=== PATIENT | male | born 1975 | race Caucasian/White ===

== ENCOUNTER 2016-05-15 18:30 | Emergency (ER) | payer MEDICAID ==
[~2016-05-15] VITALS: Ht 190.5 cm; Wt 111.6 kg
[~2016-05-15 18:30] MED LIST: ANTIBIOTIC PO; HYDR-4100 PO
[2016-05-15 18:35] VITALS: BP 125/75; PULSE 93; RESP 16; TEMP 98.1; O2SAT 95
--- NOTE | 2016-05-15 18:35 | NUR ---
Patient triaged and placed in waiting room. VSS and patient appears in no acute distress at this time. Accompanied by self, awaiting available bed, and MD notified of need for MSE.
--- NOTE | 2016-05-15 19:20 | NUR ---
Placed in room 03 . Placed on groundwater monitoring technician, blood pressure machine and pulse oximeter. To gown for exam. Side rails up. Report given to JOHN Heaton.
--- NOTE | 2016-05-15 19:30 | NUR ---
Pt states he has chronic back pain and for a day he has had a 10/10 onset in the L leg that travels up to the lower back. Will continue to monitor. No other injuries or complaints mentioned/noted. No distress noted.
--- NOTE | 2016-05-15 20:00 | NUR ---
ALFONZO Avelar examining pt at bedside.
[2016-05-15] MEDS ORDERED: MORPHINE SULFATE 10 MG/ML VIAL IM ONE (20:15)
[2016-05-15] MEDS ORDERED: DIPHENHYDRAMINE INJ 50 MG/ML VIAL IM ONE (20:15)
[2016-05-15 20:37] VITALS: BP 125/75; PULSE 74; RESP 16; TEMP 98.1; O2SAT 95
--- NOTE | 2016-05-15 20:37 | NUR ---
Patient given written and verbal discharge instructions and verbalizes understanding. ER LACQUER MIXER discussed with patient the results and treatment provided. Patient in stable condition. ID arm band removed. Rx of Medrol given. Patient educated on pain management and to follow up with PMD. Pain Scale 2/10. Opportunity for questions provided and answered.
== END 2016-05-15 20:37 | disposition home or self-care (01) ==
LOC: SED 18:30
DX: M54.16 Radiculopathy, lumbar region (principal)
CPT/HCPCS: 96372; 99284; J1200; J2270; J7030

== ENCOUNTER 2018-03-22 21:32 | Emergency (ER) | payer MEDICAID ==
[~2018-03-22] VITALS: Ht 188 cm; Wt 117.9 kg
[2018-03-22 21:37] VITALS: BP_SYST 140
[2018-03-22 23:05] VITALS: BP_SYST 140
== END 2018-03-22 23:05 | disposition home or self-care (01) ==
LOC: SED 21:32
DX: J32.9 Chronic sinusitis, unspecified (principal); R05 Cough; R03.0 Elevated blood-pressure reading, without diagnosis of hypertension
CPT/HCPCS: 99283

== ENCOUNTER 2018-10-27 12:26 | Emergency (ER) | payer MEDICAID ==
[~2018-10-27] VITALS: Ht 188 cm; Wt 122.5 kg
[2018-10-27 12:46] VITALS: BP_SYST 143
[2018-10-27] MEDS ORDERED: SODIUM BICARBONATE 8.4% VIAL 50 MEQ/50 ML VIAL INJ ONE (13:45)
[2018-10-27] MEDS ORDERED: LIDOCAINE 2%, 20 ML MDV INJ ONE (13:45)
[2018-10-27 14:27] VITALS: BP_SYST 139
== END 2018-10-27 14:27 | disposition home or self-care (01) ==
LOC: SED 12:26
DX: L98.0 Pyogenic granuloma (principal); R03.0 Elevated blood-pressure reading, without diagnosis of hypertension; K21.9 Gastro-esophageal reflux disease without esophagitis
CPT/HCPCS: 11420; 88304; 99284; J2001

== ENCOUNTER 2018-11-07 21:52 | Emergency (ER) | payer MEDICAID ==
[~2018-11-07] VITALS: Ht 190.5 cm; Wt 127.0 kg
[2018-11-07 22:00] VITALS: BP_SYST 149
[2018-11-08] MEDS ORDERED: LIDOCAINE 1% 10 MG/ML, 20 ML MDV INJ ONE (02:15)
[2018-11-08] MEDS ORDERED: BACITRACIN 1 GM OINT TP ONE ×2 (03:00→03:15)
[2018-11-08 03:14] VITALS: BP_SYST 136
[2018-11-11] MEDS ORDERED: OMEP10SU2 PO (21:10)
[2018-11-11] MEDS ORDERED: RANI300T7 PO (21:10)
[2018-11-11] MEDS ORDERED: IBUP-1970 PO (21:10)
== END 2018-11-08 03:14 | disposition home or self-care (01) ==
LOC: SED 21:52
DX: L92.8 Other granulomatous disorders of the skin and subcutaneous tissue (principal); K21.9 Gastro-esophageal reflux disease without esophagitis
CPT/HCPCS: 99283; J2001

== ENCOUNTER 2019-12-11 06:28 | Emergency (ER) | payer MEDICAID ==
[~2019-12-11] VITALS: Ht 190.5 cm; Wt 121.6 kg
[~2019-12-11 06:28] MED LIST changes: -ANTIBIOTIC PO; +CLIN300C11 PO; +DOXY100T2 PO; -HYDR-4100 PO; +L.RH1CAP PO; +OMEP10SU2 PO; +RANI300T7 PO; +TRAM100T34 PO
[2019-12-11 06:38] VITALS: BP_SYST 140
[2019-12-11 07:59] VITALS: BP_SYST 140
== END 2019-12-11 08:00 | disposition home or self-care (01) ==
LOC: SED 06:28
DX: R50.9 Fever, unspecified (principal); K21.9 Gastro-esophageal reflux disease without esophagitis; Z79.899 Other long term (current) drug therapy; Z20.828 Contact with and (suspected) exposure to other viral communicable diseases
CPT/HCPCS: 36415; 99283

== ENCOUNTER 2020-09-29 18:38 | Emergency (ER) | payer MEDICAID, SELFPAY ==
[~2020-09-29] VITALS: Ht 188 cm; Wt 108.9 kg
[~2020-09-29 18:38] MED LIST changes: -CLIN300C11 PO; +CLIN300C12 PO
[2020-09-29 18:47] VITALS: BP_SYST 142
[2020-09-29] MEDS ORDERED: PHEN16.225 PO (19:20)
[2020-09-29] MEDS ORDERED: LOM2.5 PO (19:20)
[2020-09-29 19:33] VITALS: BP_SYST 152
== END 2020-09-29 19:33 | disposition home or self-care (01) ==
LOC: SED 18:38
DX: R19.7 Diarrhea, unspecified (principal); R10.9 Unspecified abdominal pain; K21.9 Gastro-esophageal reflux disease without esophagitis; Z79.899 Other long term (current) drug therapy
CPT/HCPCS: 99283

== ENCOUNTER 2020-10-05 09:20 | Emergency (ER) | payer MEDICAID ==
[~2020-10-05] VITALS: Ht 188 cm; Wt 108.9 kg
[2020-10-05 09:27] VITALS: BP_SYST 113
[2020-10-05] MEDS ORDERED: DIPHENOXYLATE HCL/ATROP SULF 2.5 MG TAB PO ONE (10:15)
[2020-10-05] MEDS ORDERED: ONDA-8 TL (10:15)
[2020-10-05] MEDS ORDERED: LOM2.5 PO (10:15)
[2020-10-05] MEDS ORDERED: ONDANSETRON HCL 4 MG/2 ML VIAL IVP ONE (10:15)
[2020-10-05] MEDS ORDERED: NACL 0.9% 1,000 ML IV ONE (10:15)
[2020-10-05 10:29] LABS: BASOPHILS % (AUTO) 0.4 % (0.0-2.0); EOSINOPHILS # (AUTO) 0.5 K/uL (0.0-0.4); EOSINOPHILS % (AUTO) 3.9 % (0.0-4.0); HEMATOCRIT 52.4 % (36-54); HEMOGLOBIN 17.9 g/dL (14.0-18.0); LYMPHOCYTES # (AUTO) 1.1 K/uL (1.0-5.5); LYMPHOCYTES % (AUTO) 8.4 % (20.5-51.5); MEAN CORPUSCULAR HEMOGLOBIN 32 pg (27-31); MEAN CORPUSCULAR HGB CONC 34 % (32-36); MEAN CORPUSCULAR VOLUME 93 fL (79.0-98.0); MONOCYTES # (AUTO) 0.7 K/uL (0.0-1.0); MONOCYTES % (AUTO) 5.7 % (1.7-9.3); NEUTROPHILS # (AUTO) 10.4 K/uL (1.8-7.7); NEUTROPHILS % (AUTO) 81.6 % (40.0-70.0); PLATELET COUNT (AUTO) 296 K/uL (130-430); RED BLOOD CELL COUNT(AUTO) 5.63 MIL/uL (4.2-6.2); WHITE BLOOD COUNT (AUTO) 12.8 K/uL (4.8-10.8)
[2020-10-05 10:38] LABS: CALCIUM 8.3 mg/dL (8.4-11.0); CREATININE 1.21 mg/dL (0.55-1.30); POTASSIUM 3.9 mmol/L (3.5-5.1)
[2020-10-05 10:43] LABS: ALBUMIN 3.1 g/dL (3.4-4.8); TOTAL BILIRUBIN 0.4 mg/dL (0.0-1.0)
[2020-10-05 12:08] LABS: BILIRUBIN,URINE NEGATIVE (NEGATIVE); BLOOD, URINE 2+ (NEGATIVE); CLARITY/URINE CLEAR (CLEAR); COLOR,URINE YELLOW (YELLOW); GLUCOSE,URINE NEGATIVE (NEGATIVE); KETONES,URINE NEGATIVE (NEGATIVE); LEUKOCYTE ESTERASE ,URINE TRACE (NEGATIVE); NITRITE, URINE NEGATIVE (NEGATIVE); PROTEIN URINE NEGATIVE (NEGATIVE); UROBILINOGEN,URINE 0.2 (0.2-1.0)
[2020-10-05 12:19] LABS: BACTERIA,URINE FEW /HPF (None Seen); MUCUS,URINE 1+ /LPF (None Seen); RBC,URINE 0-3 /HPF (0-3); WBC,URINE 0-3 /HPF (0-3)
[2020-10-05 12:37] VITALS: BP_SYST 113
[2020-10-09] MEDS ORDERED: LOM2.5 PO ×2 (13:30→13:37)
[2020-10-09] MEDS ORDERED: ONDA-8 TL ×2 (13:30→13:37)
== END 2020-10-05 12:30 | disposition home or self-care (01) ==
LOC: SED 09:20
DX: K52.9 Noninfective gastroenteritis and colitis, unspecified (principal); E86.0 Dehydration; K21.9 Gastro-esophageal reflux disease without esophagitis; Z79.899 Other long term (current) drug therapy
CPT/HCPCS: 36415; 80053; 81000; 83690; 85025; 87086; 96361; 96374; 99283; J2405; J7030

== ENCOUNTER 2020-10-07 21:57 | Emergency (ER) | payer MEDICAID ==
[~2020-10-07] VITALS: Ht 188 cm; Wt 104.3 kg
[~2020-10-07 21:57] MED LIST changes: +LOM2.5 PO; +ONDA-8 TL
[2020-10-07 22:07] VITALS: BP_SYST 140
[2020-10-07] MEDS ORDERED: ONDA-8 TL (22:39)
[2020-10-07] MEDS ORDERED: LOM2.5 PO ×3 (22:39→22:46)
[2020-10-07 22:52] VITALS: BP_SYST 140
[2020-10-09] MEDS ORDERED: LOM2.5 PO ×2 (13:30→13:37)
[2020-10-09] MEDS ORDERED: ONDA-8 TL ×2 (13:30→13:37)
== END 2020-10-07 22:51 | disposition home or self-care (01) ==
LOC: SED 21:57
DX: R11.2 Nausea with vomiting, unspecified (principal); R19.7 Diarrhea, unspecified; K21.9 Gastro-esophageal reflux disease without esophagitis; Z79.899 Other long term (current) drug therapy
CPT/HCPCS: 99283

== ENCOUNTER 2020-10-11 22:05 | Emergency (ER) | payer MEDICAID ==
[~2020-10-11] VITALS: Ht 188 cm; Wt 106.6 kg
[2020-10-11 22:11] VITALS: BP_SYST 146
--- NOTE | 2020-10-11 22:11 | NUR ---
Patient to ER bed 06 to gown for evaluation. Side rails up.
--- NOTE | 2020-10-11 22:12 | NUR ---
Came in ER ambulatory from home this 45 year old male, AAOX4, breathing spontaneously at room air, not in distress noted. With chief complaints of left flank pain radiating to back today, 4th visit in ER, History of Cellulitis, Diabetes, Chronic back pain. No known allergy.
--- NOTE | 2020-10-11 22:47 | NUR ---
ER at bedside examining patient.
[2020-10-11] MEDS ORDERED: MORPHINE 4 MG INJ. 4 MG/ML VIAL IM ONE (23:00)
[2020-10-11 23:15] LABS: BILIRUBIN,URINE NEGATIVE (NEGATIVE); BLOOD, URINE 2+ (NEGATIVE); CLARITY/URINE CLEAR (CLEAR); COLOR,URINE YELLOW (YELLOW); GLUCOSE,URINE NEGATIVE (NEGATIVE); KETONES,URINE NEGATIVE (NEGATIVE); LEUKOCYTE ESTERASE ,URINE NEGATIVE (NEGATIVE); NITRITE, URINE NEGATIVE (NEGATIVE); PROTEIN URINE TRACE (NEGATIVE)
[2020-10-11] MEDS ORDERED: MORPHINE 4 MG INJ. 4 MG/ML VIAL IVP ONE (23:15)
--- NOTE | 2020-10-11 23:15 | NUR ---
# 20 gauge angiocath placed to left wrist. Use of asceptic technique. Opsite placed over site. Blood return noted. Blood for lab drawn from site. Flushed with 10 cc of normal saline. No evidence of infiltration noted. Patient tolerated well.
[2020-10-11 23:20] LABS: BACTERIA,URINE RARE /HPF (None Seen); WBC,URINE 0-3 /HPF (0-3)
--- NOTE | 2020-10-11 23:23 | NUR ---
Medication given ordered and verbalized understanding
[2020-10-11 23:45] LABS: HEMOGLOBIN 17.6 g/dL (14.0-18.0); MEAN CORPUSCULAR VOLUME 94 fL (79.0-98.0)
[2020-10-11 23:48] LABS: CALCIUM 9.2 mg/dL (8.4-11.0); CREATININE 1.53 mg/dL (0.55-1.30); POTASSIUM 4.5 mmol/L (3.5-5.1)
[2020-10-11 23:50] LABS: BASOPHILS # (AUTO) 0.1 K/uL (0.0-0.2); BASOPHILS % (AUTO) 0.8 % (0.0-2.0); EOSINOPHILS # (AUTO) 0.7 K/uL (0.0-0.4); EOSINOPHILS % (AUTO) 7.7 % (0.0-4.0); HEMATOCRIT 52.6 % (36-54); LYMPHOCYTES # (AUTO) 1.4 K/uL (1.0-5.5); LYMPHOCYTES % (AUTO) 14.1 % (20.5-51.5); MEAN CORPUSCULAR HEMOGLOBIN 31 pg (27-31); MEAN CORPUSCULAR HGB CONC 33 % (32-36); MONOCYTES # (AUTO) 0.7 K/uL (0.0-1.0); MONOCYTES % (AUTO) 7.7 % (1.7-9.3); NEUTROPHILS # (AUTO) 6.7 K/uL (1.8-7.7); NEUTROPHILS % (AUTO) 69.7 % (40.0-70.0); PLATELET COUNT (AUTO) 337 K/uL (130-430); RED BLOOD CELL COUNT(AUTO) 5.62 MIL/uL (4.2-6.2); WHITE BLOOD COUNT (AUTO) 9.6 K/uL (4.8-10.8)
[2020-10-11 23:55] LABS: ALBUMIN 3.1 g/dL (3.4-4.8); TOTAL BILIRUBIN 0.4 mg/dL (0.0-1.0)
--- NOTE | 2020-10-12 00:30 | NUR ---
To CT Scan department per wheelchair in stable condition accompanied by tech
--- NOTE | 2020-10-12 00:51 | NUR ---
Back to bed from CT department, kept comfortable
--- NOTE | 2020-10-12 01:57 | NUR ---
Normal saline unable to scan, entered it manually
[2020-10-12] MEDS ORDERED: NACL 0.9% 1,000 ML IV ONE (02:00)
--- NOTE | 2020-10-12 02:28 | NUR ---
To toilet ambulatory, voided freely, apparently he unconsciously removed his IV cannula, dressing applied and no active bleeding
[2020-10-12 03:04] LABS: CKMB RELATIVE INDEX 0.2 (0.0-2.9); CREATINE KINASE MB 2.4 ng/mL (0-3.6)
[2020-10-12 03:30] LABS: CALCIUM 8.6 mg/dL (8.4-11.0); CREATININE 1.28 mg/dL (0.55-1.30)
[2020-10-12 04:03] VITALS: BP_SYST 128
--- NOTE | 2020-10-12 04:03 | NUR ---
Patient given written and verbal discharge instructions and verbalizes understanding. ER MD discussed with patient the results and treatment provided. Patient in stable condition. ID arm band removed. IV catheter removed intact and dressing applied, no active bleeding. No Rx of given. Patient educated on pain management and to follow up with PMD. Pain Scale 0/10. Opportunity for questions provided and answered. Medication side effect fact sheet provided.
== END 2020-10-12 04:03 | disposition home or self-care (01) ==
LOC: SED 22:05
DX: R10.9 Unspecified abdominal pain (principal); K21.9 Gastro-esophageal reflux disease without esophagitis; Z79.899 Other long term (current) drug therapy
CPT/HCPCS: 36415; 74176; 76376; 80048; 80053; 81000; 82550; 82553; 85025; 96361; 96374; 99284; J2270; J7030

== ENCOUNTER 2020-10-18 15:45 | Emergency (ER) | payer MEDICAID ==
[~2020-10-18] VITALS: Ht 188 cm; Wt 104.3 kg
[2020-10-18 16:10] VITALS: BP_SYST 143
--- NOTE | 2020-10-18 16:10 | NUR ---
PT TO BED 3 FOR EVALUATION.
--- NOTE | 2020-10-18 16:15 | NUR ---
Pt came to ER for blood in stool and abdominal pain 01/08. Pt resting in [facility] at this time, awaiting SANDIE OMALLEY.
--- NOTE | 2020-10-18 16:20 | NUR ---
DR. MARRUFO AT BEDSIDE TO ASSESS.
--- NOTE | 2020-10-18 17:07 | NUR ---
Pt resting in [facility] at this time
[2020-10-18 17:16] LABS: BASOPHILS # (AUTO) 0.1 K/uL (0.0-0.2); EOSINOPHILS # (AUTO) 0.8 K/uL (0.0-0.4); EOSINOPHILS % (AUTO) 9.5 % (0.0-4.0); HEMATOCRIT 49.6 % (36-54); HEMOGLOBIN 16.6 g/dL (14.0-18.0); LYMPHOCYTES % (AUTO) 12.3 % (20.5-51.5); MEAN CORPUSCULAR HEMOGLOBIN 31 pg (27-31); MEAN CORPUSCULAR HGB CONC 34 % (32-36); MEAN CORPUSCULAR VOLUME 93 fL (79.0-98.0); MONOCYTES # (AUTO) 0.5 K/uL (0.0-1.0); MONOCYTES % (AUTO) 6.2 % (1.7-9.3); NEUTROPHILS # (AUTO) 5.6 K/uL (1.8-7.7); PLATELET COUNT (AUTO) 385 K/uL (130-430); RED BLOOD CELL COUNT(AUTO) 5.33 MIL/uL (4.2-6.2); RED CELL DISTRIBUTION WIDTH 16.3 % (9.0-15.0); WHITE BLOOD COUNT (AUTO) 7.9 K/uL (4.8-10.8)
[2020-10-18 17:20] LABS: CALCIUM 9.7 mg/dL (8.4-11.0); CREATININE 1.32 mg/dL (0.55-1.30); POTASSIUM 4.8 mmol/L (3.5-5.1)
[2020-10-18 17:37] LABS: TOTAL BILIRUBIN 1.1 mg/dL (0.0-1.0)
[2020-10-18 17:46] LABS: BILIRUBIN,URINE NEGATIVE (NEGATIVE); BLOOD, URINE 1+ (NEGATIVE); GLUCOSE,URINE NEGATIVE (NEGATIVE); KETONES,URINE NEGATIVE (NEGATIVE); LEUKOCYTE ESTERASE ,URINE NEGATIVE (NEGATIVE); NITRITE, URINE NEGATIVE (NEGATIVE); PH,URINE 7.5 (5.0-8.0); PROTEIN URINE TRACE (NEGATIVE)
[2020-10-18 18:00] LABS: CLARITY/URINE SLIGHTLY HAZY (CLEAR); COLOR,URINE AMBER (YELLOW)
[2020-10-18 18:05] LABS: PROTHROMBIN TIME 10.5 SECS (9.5-12.5)
[2020-10-18 18:14] LABS: C-REACTIVE PROTEIN QUANT 0.8 mg/dL (0-0.5)
[2020-10-18] MEDS ORDERED: NACL 0.9% 1,000 ML IV ONE (18:15)
[2020-10-18 19:11] LABS: BACTERIA,URINE FEW /HPF (None Seen); MUCUS,URINE None Seen /LPF (None Seen); WBC,URINE 0-3 /HPF (0-3)
[2020-10-18 19:38] VITALS: BP_SYST 143
== END 2020-10-18 19:38 | disposition home or self-care (01) ==
LOC: SED 15:45
DX: R10.33 Periumbilical pain (principal); E87.2 Acidosis; K21.9 Gastro-esophageal reflux disease without esophagitis; Z88.5 Allergy status to narcotic agent; Z79.899 Other long term (current) drug therapy
CPT/HCPCS: 36415; 74018; 80053; 81000; 82150; 83605; 83615; 83690; 84484; 85025; 85610; 85730; 86140; 96360; 99284; J7030

== ENCOUNTER 2021-01-03 00:27 | Emergency (ER) | payer OTHER, MEDICAID ==
[~2021-01-03] VITALS: Ht 188 cm; Wt 113.4 kg
[2021-01-03 00:44] VITALS: BP_SYST 156
--- NOTE | 2021-01-03 00:44 | NUR ---
Patient triaged and placed in waiting room. VSS and patient appears in no acute distress at this time. Accompanied by SELF, awaiting available bed, and MD notified of need for MSE.
[2021-01-03 00:45] VITALS: BP_SYST 156
--- NOTE | 2021-01-03 01:28 | NUR ---
NO RESPONSE WHEN CALLED FROM [facility]
== END 2021-01-03 01:29 | disposition left against medical advice (07) ==
LOC: SED 00:27
DX: R12 Heartburn (principal); Z53.21 Procedure and treatment not carried out due to patient leaving prior to being seen by health care provider

== ENCOUNTER 2021-09-02 18:51 | Emergency (ER) | payer MEDICAID ==
[~2021-09-02] VITALS: Ht 188 cm; Wt 111.1 kg
[~2021-09-02 18:51] MED LIST changes: +CLIN-142 PO; -CLIN300C12 PO; +HYDR-3917 PO
[2021-09-02 19:01] VITALS: BP_SYST 132
--- NOTE | 2021-09-02 19:01 | NUR ---
Placed in room 8 . Placed on director of cardiac rehabilitation, blood pressure machine and pulse oximeter. To gown for exam. Side rails up.
--- NOTE | 2021-09-02 19:15 | NUR ---
REPORT GIVEN TO JOHN LAZO FOR CONTINUING CARE
[2021-09-02] MEDS ORDERED: KETOROLAC TROMETHAMINE 30 MG VIAL IVP ONE (19:30)
--- NOTE | 2021-09-02 19:45 | NUR ---
Attempted IV with no luck aware. Lab had no luck with initial blood draw.
[2021-09-02 20:06] LABS: BILIRUBIN,URINE NEGATIVE (NEGATIVE); BLOOD, URINE 2+ (NEGATIVE); CLARITY/URINE CLEAR (CLEAR); COLOR,URINE YELLOW (YELLOW); GLUCOSE,URINE NEGATIVE (NEGATIVE); KETONES,URINE NEGATIVE (NEGATIVE); LEUKOCYTE ESTERASE ,URINE NEGATIVE (NEGATIVE); NITRITE, URINE NEGATIVE (NEGATIVE); PROTEIN URINE NEGATIVE (NEGATIVE); UROBILINOGEN,URINE 0.2 (0.2-1.0)
[2021-09-02] MEDS ORDERED: KETOROLAC TROMETHAMINE 60 MG/2 ML VIAL IM ONE (20:15)
[2021-09-02] MEDS ORDERED: HYDROcodone/ACETAMIN 5-325 MG TAB (NORCO/ VICODIN) PO ONE (20:15)
[2021-09-02 20:18] LABS: METHAMPHETAMINES SCREEN,URINE POSITIVE (NEG <=500); URINE AMPHETAMINE POSITIVE (NEG <=500)
[2021-09-02 20:19] LABS: BARBITURATE, URINE NEGATIVE (NEG <=200); BENZODIAZEPINE, URINE POSITIVE (NEG <=150); CANNABINOID, URINE NEGATIVE (NEG <=50); COCAINE, URINE NEGATIVE (NEG <=150); OPIATE, URINE NEGATIVE (NEG <=100); PHENCYCLIDINE SCREEN,URINE NEGATIVE (NEG <=25); UR TRICYCLIC ANTIDEPRESSANTS NEGATIVE (NEG <=300); URINE METHADONE NEGATIVE (NEG <=200); URINE OXYCODONE SCREEN NEGATIVE (NEG <=100); URINE PROPOXYPHENE SCREEN NEGATIVE (NEG <=300)
--- NOTE | 2021-09-02 20:23 | NUR ---
Lab attempting to redraw blood.
[2021-09-02 20:41] LABS: WBC,URINE 0-3 /HPF (0-3)
[2021-09-02 20:42] LABS: BACTERIA,URINE FEW /HPF (None Seen)
[2021-09-02 20:58] LABS: BASOPHILS % (AUTO) 0.5 % (0.0-2.0); EOSINOPHILS % (AUTO) 0.6 % (0.0-4.0); HEMATOCRIT 45.9 % (36-54); HEMOGLOBIN 15.9 g/dL (14.0-18.0); LYMPHOCYTES % (AUTO) 14.9 % (20.5-51.5); MEAN CORPUSCULAR HEMOGLOBIN 31 pg (27-31); MEAN CORPUSCULAR HGB CONC 35 % (32-36); MEAN CORPUSCULAR VOLUME 90 fL (79.0-98.0); MONOCYTES % (AUTO) 14.4 % (1.7-9.3); NEUTROPHILS # (AUTO) 4.6 K/uL (1.8-7.7); NEUTROPHILS % (AUTO) 69.6 % (40.0-70.0); PLATELET COUNT (AUTO) 231 K/uL (130-430); RED BLOOD CELL COUNT(AUTO) 5.12 MIL/uL (4.2-6.2); RED CELL DISTRIBUTION WIDTH 15.1 % (9.0-15.0); WHITE BLOOD COUNT (AUTO) 6.6 K/uL (4.8-10.8)
[2021-09-02 21:20] LABS: CALCIUM 8.3 mg/dL (8.4-11.0); CREATININE 1.25 mg/dL (0.55-1.30); POTASSIUM 3.9 mmol/L (3.5-5.1)
[2021-09-02 21:26] LABS: ALBUMIN 3.3 g/dL (3.4-4.8); C-REACTIVE PROTEIN QUANT 6.8 mg/dL (0-0.5); TOTAL BILIRUBIN 0.5 mg/dL (0.0-1.0)
--- NOTE | 2021-09-02 21:27 | NUR ---
Patient taken to CT scan. Awaiting pending lab results.
--- NOTE | 2021-09-02 21:32 | NUR ---
Patient back from CT scan, placed on monitor and no signs of distress noted.
[2021-09-03] MEDS ORDERED: IBUP-1971 PO (01:53)
--- NOTE | 2021-09-03 02:01 | NUR ---
Patient given written and verbal discharge instructions and verbalizes understanding. ER MD discussed with patient the results and treatment provided. Patient in stable condition. ID arm band removed. IV catheter removed intact and dressing applied, no active bleeding. Rx of ibuprofen given. Patient educated on pain management and to follow up with PMD. Pain Scale . Opportunity for questions provided and answered. Medication side effect fact sheet provided.
== END 2021-09-03 02:01 | disposition home or self-care (01) ==
LOC: SED 18:51
DX: U07.1 COVID-19 (principal); M54.50 Low back pain, unspecified; G89.29 Other chronic pain; I10 Essential (primary) hypertension; K21.9 Gastro-esophageal reflux disease without esophagitis; F19.10 Other psychoactive substance abuse, uncomplicated; Z79.899 Other long term (current) drug therapy
CPT/HCPCS: 36415; 71045; 72131; 76376; 80053; 80307; 81000; 82550; 83605; 83615; 85025; 86140; 87040; 87086; 87426; 93005; 96372; 99285; J1885

== ENCOUNTER 2021-09-06 00:09 | Emergency (ER) | payer MEDICAID ==
[~2021-09-06] VITALS: Ht 188 cm; Wt 108.9 kg
[~2021-09-06 00:09] MED LIST changes: +IBUP-1971 PO
[2021-09-06 00:16] VITALS: BP_SYST 123
--- NOTE | 2021-09-06 01:30 | NUR ---
Pt left without being seen.
== END 2021-09-06 01:30 | disposition left against medical advice (07) ==
LOC: SED 00:09
DX: M54.9 Dorsalgia, unspecified (principal); Z53.21 Procedure and treatment not carried out due to patient leaving prior to being seen by health care provider